=== PATIENT | female | born 1975 ===

== ENCOUNTER 2018-02-10 05:50 | Day surgery (SDC) | payer OTHER ==
[~2018-02-10 05:50] MED LIST: MOTRIN800 MG PO
== END 2018-02-10 09:45 | disposition home or self-care (01) ==
LOC: AMB-ENDOS 05:50
DX: K62.5 Hemorrhage of anus and rectum (principal); K64.8 Other hemorrhoids; K64.0 First degree hemorrhoids; Z12.12 Encounter for screening for malignant neoplasm of rectum